=== PATIENT | female | born 1995 | race Caucasian/White ===

== ENCOUNTER 2025-02-11 06:45 | Inpatient (IN) | payer BC, OTHER ==
[2025-02-11] MEDS ORDERED: Ondansetron 4 MG/2 ML SDV IVPUSH PRN (06:54)
[2025-02-11] MEDS ORDERED: Sodium Chloride 0.9% 10 ML Syringe FLUSH PRN (06:54)
[2025-02-11] MEDS ORDERED: Nalbuphine 10 MG/1 ML Vial IVPUSH PRN (06:54)
[2025-02-11] MEDS ORDERED: Oxytocin/0.9 % Sodium Chloride 30 UNIT/500 ML BAG IV SCH (07:00)
[2025-02-11 07:33] LABS: BASOPHILS ABSOLUTE AUTO 0.0 K/mm3 (0.0-0.2); BASOPHILS PERCENT AUTO 0.2 % (0.0-1.0); EOSINOPHILS ABSOLUTE AUTO 0.1 K/mm3 (0.0-0.4); EOSINOPHILS PERCENT AUTO 1.4 % (0.0-6.0); IMMATURE GRAN ABSOLUTE AUTO 0.03 K/mm3 (0.00-0.05); IMMATURE GRAN PERCENT AUTO 0.4 % (0.0-0.4); LYMPHOCYTES ABSOLUTE AUTO 1.2 K/mm3 (1.0-4.8); LYMPHOCYTES PERCENT AUTO 14.0 % (24.0-44.0); MEAN PLATELET VOLUME 11.4 fl (9.4-12.3); MONOCYTES ABSOLUTE AUTO 0.8 K/mm3 (0.0-0.8); MONOCYTES PERCENT AUTO 9.3 % (0.0-8.0); NEUTROPHILS ABSOLUTE AUTO 6.2 K/mm3 (1.8-7.7); NEUTROPHILS PERCENT AUTO 74.7 % (41.0-71.0); NRBC ABSOLUTE 0.00 (0.00-0.02); NRBC PERCENT 0.0 % (0.0-0.2); PLATELET COUNT,PLT 174 K/mm3 (150-400); RED BLOOD CELL COUNT 4.40 M/mm3 (4.10-5.30); WHITE BLOOD CELL COUNT,WBC 8.29 K/mm3 (3.9-11.3)
[2025-02-11] MEDS: Misoprostol 25 MCG (1/4 of 100 MCG) Tab VAG ONE (07:42)
[2025-02-11] MEDS ORDERED: ePHEDrine 50 MG/ML SDV IVPUSH PRN (10:27)
[2025-02-11] MEDS ORDERED: diphenhydrAMINE 50 MG/ML SDV IVPUSH PRN (10:27)
[2025-02-11] MEDS: Misoprostol 25 MCG (1/4 of 100 MCG) Tab VAG PRN (11:43)
[2025-02-11] MEDS: Insulin Lispro 100 Unit/ML 3 ML KwikPen SUBCUT SCH (11:46)
[2025-02-11] MEDS: Sodium Chloride 0.9% 10 ML Syringe FLUSH SCH (11:47)
[2025-02-11] MEDS: Lactated Ringers 1,000 ML IV SCH (18:14)
[2025-02-11] MEDS: fentaNYL 100 MCG/2 ML SDV EPIDUR PRN (18:30)
[2025-02-11] MEDS: Bupivacaine/fentaNYL/NS 100 ML Bag EPIDUR PRN (18:30)
[2025-02-12] MEDS: Oxytocin/0.9 % Sodium Chloride 30 UNIT/500 ML BAG IV SCH ×2 (01:26→12:37)
[2025-02-12] MEDS: Witch Hazel Medicated Pads 40/Jar TOP PRN (03:59)
[2025-02-12] MEDS: Benzocaine/Menthol 20%-0.5% Spray 78 GM Cannister TOP PRN (03:59)
[2025-02-12] MEDS: fentaNYL 100 MCG/2 ML SDV ONE ×2 (07:30→12:18)
[2025-02-12] MEDS: fentaNYL 100 MCG/2 ML SDV IVPUSH ONE ×2 (07:30→12:17)
[2025-02-12 07:55] LABS: MEAN PLATELET VOLUME 11.6 fl (9.4-12.3); NRBC ABSOLUTE 0.00 (0.00-0.02); NRBC PERCENT 0.0 % (0.0-0.2); PLATELET COUNT,PLT 165 K/mm3 (150-400); RED BLOOD CELL COUNT 3.96 M/mm3 (4.10-5.30); WHITE BLOOD CELL COUNT,WBC 21.08 K/mm3 (3.9-11.3)
[2025-02-12 08:34] LABS: INR 0.95
[2025-02-12 08:36] LABS: PTT,PARTIAL THROMBOPLSTIN TIME 27.7 SECONDS (21.7-31.4)
[2025-02-12] MEDS: Lactated Ringers 1,000 ML IV ONE (11:53)
[2025-02-12] MEDS: Carboprost Tromethamine 250 MCG/1 mL Vial IM STA (12:22)
[2025-02-12 13:13] LABS: MEAN PLATELET VOLUME 12.0 fl (9.4-12.3); NRBC ABSOLUTE 0.00 (0.00-0.02); NRBC PERCENT 0.0 % (0.0-0.2); PLATELET COUNT,PLT 146 K/mm3 (150-400); RED BLOOD CELL COUNT 3.33 M/mm3 (4.10-5.30); WHITE BLOOD CELL COUNT,WBC 17.57 K/mm3 (3.9-11.3)
[2025-02-12 13:40] LABS: INR 0.95
[2025-02-12 13:41] LABS: PTT,PARTIAL THROMBOPLSTIN TIME 23.1 SECONDS (21.7-31.4)
[2025-02-12] MEDS: Ketorolac 30 MG/ML SDV IVPUSH SCH (16:18)
[2025-02-13 04:35] LABS: MEAN PLATELET VOLUME 11.4 fl (9.4-12.3); NRBC ABSOLUTE 0.00 (0.00-0.02); NRBC PERCENT 0.0 % (0.0-0.2); PLATELET COUNT,PLT 128 K/mm3 (150-400); RED BLOOD CELL COUNT 2.56 M/mm3 (4.10-5.30); WHITE BLOOD CELL COUNT,WBC 12.17 K/mm3 (3.9-11.3)
[2025-02-14 05:28] LABS: MEAN PLATELET VOLUME 11.4 fl (9.4-12.3); NRBC ABSOLUTE 0.00 (0.00-0.02); NRBC PERCENT 0.0 % (0.0-0.2); PLATELET COUNT,PLT 140 K/mm3 (150-400); RED BLOOD CELL COUNT 2.54 M/mm3 (4.10-5.30); WHITE BLOOD CELL COUNT,WBC 8.04 K/mm3 (3.9-11.3)
[2025-02-14] MEDS ORDERED: Measles, Mumps & Rubella Vaccine 0.5 ML SDV SUBCUT ONE (09:06)
== END 2025-02-14 12:55 | disposition home or self-care (01) | DRG 560 ==
LOC: UNDOADMOB 06:45 → JD.OB 06:45 → INTOOBSV 06:46 → OBSVTOIN 06:46 → JD.OB 02-12 02:37 → UNDODISIN 02-14 12:55 → PREOBSVTOIN 02-18 13:23
PROVIDERS: ADMIT Obstetrics & Gynecology; ATTEND Obstetrics & Gynecology
PROC: 3E0DXGC Introduction of Other Therapeutic Substance into Mouth and Pharynx, External Approach (ICD-10-PCS; principal; 2025-02-11)
PROC: 0KQM0ZZ Repair Perineum Muscle, Open Approach (ICD-10-PCS; principal; 2025-02-11)
PROC: 10907ZC Drainage of Amniotic Fluid, Therapeutic from Products of Conception, Via Natural or Artificial Opening (ICD-10-PCS; principal; 2025-02-11)
PROC: 3E033VJ Introduction of Other Hormone into Peripheral Vein, Percutaneous Approach (ICD-10-PCS; principal; 2025-02-11)
PROC: 3E0234Z Introduction of Serum, Toxoid and Vaccine into Muscle, Percutaneous Approach (ICD-10-PCS; principal; 2025-02-11)
PROC: 3E0R3BZ Introduction of Anesthetic Agent into Spinal Canal, Percutaneous Approach (ICD-10-PCS; principal; 2025-02-11)
PROC: 10E0XZZ Delivery of Products of Conception, External Approach (ICD-10-PCS; principal; 2025-02-11)
PROC: 30233N1 Transfusion of Nonautologous Red Blood Cells into Peripheral Vein, Percutaneous Approach (ICD-10-PCS; principal; 2025-02-11)
DX: O24.424 Gestational diabetes mellitus in childbirth, insulin controlled (principal); Z3A.39 39 weeks gestation of pregnancy; Z37.0 Single live birth; Z86.16 Personal history of COVID-19; Z79.4 Long term (current) use of insulin; Z79.899 Other long term (current) drug therapy; O66.0 Obstructed labor due to shoulder dystocia; O73.0 Retained placenta without hemorrhage; D62 Acute posthemorrhagic anemia; O90.81 Anemia of the puerperium; O70.1 Second degree perineal laceration during delivery; O72.2 Delayed and secondary postpartum hemorrhage
CPT/HCPCS: 36415; 36430; 51701; 51702; 59025; 59409; 76857; 76857-26; 85025; 85027; 85384; 85610; 85730; 86592; 86850; 86870; 86900; 86901; 86922; A9270-GY; C1726; C1758; J0665; J0690; J1885; J2210; J3010; J3490; J7120; J7999; P9016